=== PATIENT | male | born 1955 | race Two or more races ===

== ENCOUNTER 2017-05-09 11:43 | Emergency (ER) | payer OTHER, MEDICAID ==
[~2017-05-09] VITALS: Ht 182.9 cm; Wt 79.4 kg
[2017-05-09 12:30] VITALS: BP 132/98
[2017-05-09] MEDS ORDERED: ALBUTEROL SULF 2.5 MG/0.5ML(0.5%) NEB SOLN NEB ONE (13:45)
[2017-05-09] MEDS ORDERED: KETOROLAC TROMETH 60MG/2ML VIAL IM ONE (13:45)
[2017-05-09] MEDS ORDERED: IPRATROPIUM BROM 0.5 MG/2.5ML INH SOL NEB ONE (13:45)
== END 2017-05-09 14:39 | disposition home or self-care (01) ==
LOC: ER 11:43
DX: J44.9 Chronic obstructive pulmonary disease, unspecified (principal); G89.29 Other chronic pain; M54.2 Cervicalgia
CPT/HCPCS: 36415; 71046; 71250; 84484; 85379; 93005; 94640; 96372; 99285; J1885